=== PATIENT | female | born 1980 | race Caucasian/White ===

== ENCOUNTER 2017-09-07 20:54 | Emergency (ER) | payer OTHER ==
[2017-09-07 21:00] VITALS: BP 133/89
[2017-09-07] MEDS ORDERED: Ondansetron 4 MG/2 ML SDV IVPUSH ONE ×2 (21:13→23:23)
[2017-09-07] MEDS ORDERED: LORazepam 2 MG/ML SDV IVPUSH ONE (21:13)
[2017-09-07] MEDS: Sodium Chloride 0.9% 1,000 ML IV SCH ×2 (21:21→22:46)
--- NOTE | 2017-09-07 21:53 | EDM.PDOC ---
ED HPI GENERAL MEDICAL PROBLEM - General Chief Complaint: Neurological Problem Stated Complaint: [facility] Time Seen by Provider: 09/07/17 21:05 Source of Information: Reports: Patient History Limitations: Reports: No Limitations - History of Present Illness INITIAL COMMENTS - FREE TEXT/NARRATIVE: This is a 36-year-old female. She apparently has a history of seizures. She began about 4 months ago and was placed on Keppra which she did not tolerate and she had an MRI of her head that apparently was normal. About 2 weeks ago she had a grand mal seizure. She is going to be worked up in [place] for her seizure since they aren't certain what is causing them. Today she was at a wrestling match and she had a seizure but it was the type of seizure where she did lose consciousness completely. She did sit down and she did develop a headache and she took some Excedrin. Apparently about 15 minutes after this initial episode she had a true grand mal seizure in which she lost consciousness. An ambulance was called and she was brought here to the ER. When she arrived she was alert and oriented and did not appear to be postictal and was able to answer all questions appropriately. She still complains of a mild headache and she feels somewhat tired but she is not confused. She denies any recent illnesses no colds no cough no fever no chills no nausea no vomiting no diarrhea. The only positive event was this morning she gave some blood and then when they checked her blood sugar when she had the second seizure today it was 59 and they gave her some sugar on the way to the ER. Treatments LOSS CONTROL ENGINEER: Reports: Other (see below) Other Treatments LOSS CONTROL ENGINEER: excedrin Headache Pain Score (Numeric/FACES): 8 - Related Data Allergies Allergy/AdvReac Type Severity Reaction Status Date / Time hydromorphone HCl Allergy Itching Verified 04/21/15 10:35 [From Dilaudid] anesthesia Allergy Nausea and Uncoded 04/17/15 17:31 Vomiting Home Meds: Home Meds . [No Known Home Meds] 09/07/17 [History] Past Medical History - Past Health History Medical/Surgical History: Denies Medical/Surgical History Other HEENT History: wears glasses Other Genitourinary History: history of frequent UTIs in childhood Neurological History: Reports: Seizure Other Psychiatric History: with first son had depression 12 yrs ago - Past Surgical History Other GI Surgeries/Procedures: 05/10/15 will have inguinal hernia repair Other Female Surgeries/Procedures: ovarian cyst Social & Family History - Tobacco Use Smoking Status *Q: Former Smoker Used Tobacco, but Quit: Yes Month Tobacco Last Used: 2 months Second Hand Smoke Exposure: No - Caffeine Use Caffeine Use: Reports: Soda - Alcohol Use Days Per Week of Alcohol Use: 0 - Recreational Drug Use Recreational Drug Use: No Recreational Drug Last Use: remote history of marijuana. Denies IV drug use. ED ROS GENERAL - Review of Systems Review Of Systems: See Below Constitutional: Denies: Fever, Chills HEENT: Denies: Ear Pain, Rhinitis, Sinus Problem, Throat Pain, Throat Swelling Respiratory: Denies: Cough Cardiovascular: Denies: Chest Pain Endocrine: Reports: No Symptoms GI/Abdominal: Reports: No Symptoms : Reports: No Symptoms Musculoskeletal: Reports: No Symptoms Skin: Reports: No Symptoms Neurological: Reports: Headache, Seizure Psychiatric: Reports: No Symptoms Hematologic/Lymphatic: Reports: No Symptoms - Physical Exam Exam: See Below Exam Limited By: No Limitations General Appearance: Alert, WD/WN, No Apparent Distress Eye Exam: Bilateral Eye: Normal Inspection Ears: Normal External Exam, Normal Canal, Normal TMs Nose: Normal Inspection Throat/Mouth: Normal Inspection, Normal Lips, Normal Oropharynx, Normal Voice, No Airway Compromise Head Exam: Normocephalic Neck: Supple, Non-Tender Respiratory/Chest: No Respiratory Distress, Lungs Clear, Normal Breath Sounds Cardiovascular: Regular Rate, Rhythm, No Murmur GI/Abdominal: Soft, Non-Tender Neuro Exam (Abbreviated): Alert, Oriented, Normal Cognition, No Motor/Sensory Deficits Back Exam: Full Range of Motion Extremities: Normal Inspection, Normal Range of Motion Psychiatric: Normal Affect, Normal Mood Skin Exam: Warm, Dry Course - Vital Signs Last Recorded V/S: Last Vital Signs Temp 97.7 F 09/07/17 20:57 Pulse 83 09/07/17 20:57 Resp 18 09/07/17 20:57 BP 133/89 09/07/17 20:57 Pulse Ox 100 09/07/17 20:57 - Orders/Labs/Meds Orders: Active Orders 24 hr Category Date Time Status EKG 12 Lead [EKG Documentation Completion] [RC] ROUTINE Care 09/07/17 21:05 Active Head wo Cont [CT] Stat Exams 09/07/17 23:57 Taken Sodium Chloride 0.9% [Normal Saline] 1,000 ml Med 09/07/17 21:15 Active IV ASDIRECTED Medication Orders Sodium Chloride (Normal Saline) 1,000 mls @ 1,000 mls/hr IV ASDIRECTED ZAFAR Last Admin: 09/07/17 22:46 Dose: 1,000 mls/hr Infusion: 09/07/17 22:21 Dose: 1,000 mls/hr Admin: 09/07/17 21:21 Dose: 1,000 mls/hr Labs: Laboratory Tests 09/07/17 09/07/17 Range/Units 22:03 23:16 POC Glucose 76 86 (70-105) mg/dL Meds: Medications Generic Name Dose Route Start Last Admin Trade Name Freq PRN Reason Stop Dose Admin Sodium Chloride 1,000 mls @ 1,000 mls/hr 09/07/17 21:15 09/07/17 22:46 Normal Saline IV 1,000 mls/hr ASDIRECTED ZAFAR Administration Discontinued Medications Generic Name Dose Route Start Last Admin Trade Name Freq PRN Reason Stop Dose Admin Fentanyl 100 mcg 09/07/17 23:22 09/07/17 23:32 Sublimaze IVPUSH 09/07/17 23:23 100 mcg ONETIME ONE Administration Lorazepam 1 mg 09/07/17 21:13 09/07/17 21:25 Ativan IVPUSH 09/07/17 21:14 1 mg ONETIME ONE Administration Ondansetron HCl 4 mg 09/07/17 21:13 09/07/17 21:22 Zofran IVPUSH 09/07/17 21:14 4 mg ONETIME ONE Administration Ondansetron HCl 4 mg 09/07/17 23:23 09/07/17 23:32 Zofran IVPUSH 09/07/17 23:24 4 mg ONETIME ONE Administration - Radiology Interpretation Free Text/Narrative:: CT scan of the head was normal - Re-Assessments/Exams Free Text/Narrative Re-Assessment/Exam: 09/07/17 22:16 Patient has been doing okay but she got up to go the bathroom felt somewhat wobbly and weak. When she got up from the toilet she felt dizzy and required some nurses to help her to get back to bed. Her and check was 79 at that time. We'll provide some food for her. 09/08/17 01:32 I spoke to the patient and her regarding the CAT scan being normal. 09/08/17 01:32 Patient is able to ambulate and feels much better and she wants to go home. Departure - Departure Time of Disposition: 01:33 Disposition: Home, Self-Care 01 Condition: Fair Clinical Impression: Seizure, Hypoglycemia - Discharge Information Referrals: PCP,None [Primary Care Provider] - Forms: ED Department Discharge Additional Instructions: Sleep as much as you can tonight and tomorrow, gentle activity over the next 48 hours with no straining or stress or excitement, avoid caffeine for the next 48 hours, recheck with your family doctor and follow-up with [place] for continued workup of your seizures, return to the ER if needed - My Orders Last 24 Hours: My Active Orders 09/07/17 21:05 EKG 12 Lead [EKG Documentation Completion] [RC] ROUTINE 09/07/17 21:15 Sodium Chloride 0.9% [Normal Saline] 1,000 ml IV ASDIRECTED 09/07/17 23:57 Head wo Cont [CT] Stat - Assessment/Plan Last 24 Hours: My Active Orders 09/07/17 21:05 EKG 12 Lead [EKG Documentation Completion] [RC] ROUTINE 09/07/17 21:15 Sodium Chloride 0.9% [Normal Saline] 1,000 ml IV ASDIRECTED 09/07/17 23:57 Head wo Cont [CT] Stat
[2017-09-07] MEDS ORDERED: fentaNYL 100 MCG/2 ML SDV IVPUSH ONE (23:22)
--- NOTE | 2017-09-10 08:01 | CT ---
Head CT Technique: Multiple axial sections through the brain were obtained. Intravenous contrast was not utilized. Comparison: Prior MRI brain of 04/27/16. Findings: Ventricles along with basal cisterns and sulci over the convexities are within normal limits for the patient's age. No abnormal parenchymal densities are seen. No evidence of intracranial hemorrhage. No midline shift or mass effect is seen. Bone window settings were reviewed which show no acute calvarial abnormality. Mucosal thickening and possible air-fluid level noted within the right sphenoid sinus. Minimal mucosal thickening is noted within the anterior ethmoid sinuses. Impression: 1. Sinus findings. Uncertain if air-fluid level is due to retained secretions or pre-existing sinusitis. Please correlate with the patient's symptoms. 2. No additional abnormality is identified on noncontrast head CT exam. Diagnostic code #3
== END 2017-09-08 01:45 | disposition home or self-care (01) ==
LOC: JD.ED 20:54
DX: G40.409 Other generalized epilepsy and epileptic syndromes, not intractable, without status epilepticus (principal); E16.2 Hypoglycemia, unspecified; Z87.891 Personal history of nicotine dependence; Z88.5 Allergy status to narcotic agent; Z88.4 Allergy status to anesthetic agent
CPT/HCPCS: 70450; 82962; 93005; 96361; 96374; 96375; 96376; 99285; J2060; J2405; J3010; J7040

== ENCOUNTER 2020-12-30 03:29 | Emergency (ER) | payer MEDICAID, OTHER ==
[2020-12-30] MEDS ORDERED: Lactated Ringers 1,000 ML IV ONE (03:35)
[2020-12-30] MEDS ORDERED: Ondansetron 4 MG/2 ML SDV IVPUSH ONE (03:35)
[2020-12-30] MEDS ORDERED: Lactated Ringers 1,000 ML IV SCH (03:45)
--- NOTE | 2020-12-30 04:01 | EDM.PDOC ---
<Amaury Dillon - Last Filed: 12/30/20 04:50> ED HPI GENERAL MEDICAL PROBLEM - General Chief Complaint: Neuro Symptoms/Deficits Stated Complaint: [facility] Time Seen by Provider: 12/30/20 03:35 - History of Present Illness INITIAL COMMENTS - FREE TEXT/NARRATIVE: 40-year-old female brought in by EMS after having some apparent seizure activity. The patient is quite intoxicated and does not able or willing to provide much history at this point. According to the patient significant other the patient has seizures he is not aware of what type of work-up she has had for this. But she has the seizures that last up to a minute where she has motion in all 4 extremities. And then when seizures done she is awake none of these are associated with loss of bowel or bladder control. Tonight the patient has been drinking she has had about half a dozen mixed drinks and half a dozen shots. Usually the seizures are associated with stress. According to the significant other the seizures he is witnessed tonight lasted about 30 seconds and from the time they started the till the time EMS arrived to pick her up she has had roughly 20 of these. EMS transported her gave her 5 mg of Valium and 1 mg of Ativan. Accu-Chek was 102 I did find a note in our records that is roughly 2 years old that is the only note in our records that talk about her having a seizure disorder. It mentions that the cause of the seizures is unknown and she will go to [facility] to get this evaluated. The significant other does not not know anything about this. - Related Data Allergies Allergy/AdvReac Type Severity Reaction Status Date / Time hydromorphone HCl Allergy Itching Verified 12/30/20 03:35 [From Dilaudid] anesthesia AdvReac Nausea and Uncoded 12/30/20 04:33 Vomiting Home Meds: Home Meds . [No Known Home Meds] 09/07/17 [History] Past Medical History - Past Health History Medical/Surgical History: Denies Medical/Surgical History Other HEENT History: wears glasses Other Genitourinary History: history of frequent UTIs in childhood Neurological History: Reports: Seizure Other Psychiatric History: with first son had depression 12 yrs ago - Past Surgical History Other GI Surgeries/Procedures: 05/10/15 will have inguinal hernia repair Other Female Surgeries/Procedures: ovarian cyst Social & Family History - Tobacco Use Tobacco Use Status *Q: Unknown Ever Used Tobacco - Caffeine Use Caffeine Use: Reports: Soda - Recreational Drug Use Recreational Drug Use: No ED ROS GENERAL - Review of Systems Review Of Systems: See Below Reason Not Obtained: Patient is too sleepy or sedated to answer questions ED EXAM, GENERAL - Physical Exam Exam: See Below Exam Limited By: Intoxication (Patient is highly intoxicated and just wants to sleep.) General Appearance: No Apparent Distress Head: Atraumatic, Normocephalic Neck: Normal Inspection, Supple, Non-Tender, Full Range of Motion Respiratory/Chest: No Respiratory Distress, Lungs Clear, Normal Breath Sounds Cardiovascular: Regular Rate, Rhythm, No Edema, No Murmur GI/Abdominal: Normal Bowel Sounds, Soft, Other (No obvious tenderness but the patient is quite sedated) Course - Re-Assessments/Exams Free Text/Narrative Re-Assessment/Exam: 12/30/20 05:07 At this time patient is stable however is overly sedated either from the alcohol and/or the benzodiazepine she received in route and will not cooperate with the exam Departure - Departure Disposition: Home, Self-Care 01 Clinical Impression: Alcohol intoxication Qualifiers: Complication of substance-induced condition: uncomplicated Qualified Code(s): F10.920 - Alcohol use, unspecified with intoxication, uncomplicated Convulsion, non-epileptic Qualifiers: Convulsion type: unspecified Qualified Code(s): R56.9 - Unspecified convulsions - Discharge Information Referrals: PCP,None [Primary Care Provider] - Forms: ED Department Discharge Additional Instructions: 1. Drink plenty of fluids 2. Ibuprofen and/or acetaminophen as needed for pain 3. Follow up with the local primary care provider of your choice 4. Return to the ED as needed for severe pain, seizures, weakness, confusion, fever, or other concerning symptoms Sepsis Event Note (ED) - Evaluation Sepsis Screening Result: No Definite Risk <Vladimir Mora - Last Filed: 12/30/20 08:48> Course - Vital Signs Last Recorded V/S: Last Vital Signs Temp 36.9 C 12/30/20 03:31 Pulse 78 12/30/20 03:31 Resp 16 12/30/20 03:31 BP 98/78 12/30/20 03:31 Pulse Ox 98 12/30/20 03:31 - Orders/Labs/Meds Orders: Active Orders 24 hr Category Date Time Status Lactated Ringers [Ringers, Lactated] 1,000 ml Med 12/30/20 03:45 Active IV ASDIRECTED Medication Orders Lactated Ringer's (Ringers, Lactated) 1,000 mls @ 125 mls/hr IV ASDIRECTED ZAFAR Last Admin: 12/30/20 04:58 Dose: 125 mls/hr Documented by: OSVALDO Labs: Laboratory Tests 12/30/20 12/30/20 12/30/20 Range/Units 03:45 03:45 03:45 WBC 4.99 (3.98-10.04) K/mm3 RBC 4.11 (3.98-5.22) M/mm3 Hgb 13.4 (11.2-15.7) gm/dl Hct 40.3 (34.1-44.9) % MCV 98.1 H D (79.4-94.8) fl MCH 32.6 H (25.6-32.2) pg MCHC 33.3 (32.2-35.5) g/dl RDW Std Deviation 48.6 H (36.4-46.3) fL Plt Count 187 (182-369) K/mm3 MPV 10.1 (9.4-12.3) fl Neut % (Auto) 45.3 (34.0-71.1) % Lymph % (Auto) 42.5 (19.3-51.7) % [place] % (Auto) 9.8 (4.7-12.5) % Eos % (Auto) 2.2 (0.7-5.8) Baso % (Auto) 0.2 (0.1-1.2) % Neut # (Auto) 2.26 (1.56-6.13) K/mm3 Lymph # (Auto) 2.12 (1.18-3.74) K/mm3 [place] # (Auto) 0.49 H (0.24-0.36) K/mm3 Eos # (Auto) 0.11 (0.04-0.36) K/mm3 Baso # (Auto) 0.01 (0.01-0.08) K/mm3 PT 10.5 (9.7-12.0) SECONDS INR 0.98 Sodium 148 H (136-145) mEq/L Potassium 3.4 L (3.5-5.1) mEq/L Chloride 111 H (98-107) mEq/L Carbon Dioxide 25 (21-32) mEq/L Anion Gap 15.4 H (5-15) BUN 10 (7-18) mg/dL Creatinine 0.8 (0.55-1.02) mg/dL Est Cr Clr Drug Dosing 80.72 mL/min Estimated GFR (MDRD) > 60 (>60) mL/min BUN/Creatinine Ratio 12.5 L (14-18) Glucose 106 H (70-99) mg/dL Calcium 8.3 L (8.5-10.1) mg/dL Total Bilirubin 0.3 (0.2-1.0) mg/dL AST 18 (15-37) U/L ALT 20 (14-59) U/L Alkaline Phosphatase 48 (46-116) U/L Total Protein 6.9 (6.4-8.2) g/dl Albumin 3.5 (3.4-5.0) g/dl Globulin 3.4 gm/dL Albumin/Globulin Ratio 1.0 (1-2) HCG, Qual (NEGATIVE) Urine Color (Yellow) Urine Appearance (Clear) Urine pH (5.0-8.0) Ur Specific [place] (1.005-1.030) Urine Protein (Negative) Urine Glucose (UA) (Negative) Urine Ketones (Negative) Urine Occult Blood (Negative) Urine Nitrite (Negative) Urine Bilirubin (Negative) Urine Urobilinogen (0.2-1.0) Ur Leukocyte Esterase (Negative) Urine RBC (0-5) /hpf Urine WBC (0-5) /hpf Ur Epithelial Cells (0-5) /hpf Urine Bacteria (FEW) /hpf Urine Mucus (FEW) /hpf Urine Opiates Screen (ELOKPN=845) Ur Buprenorphine Scrn (CUTOFF=10) Ur Oxycodone Screen (IFL0TX=104) Urine Methadone Screen (GQLARM=736) Ur Propoxyphene Screen (PHBDSB=576) Ur Barbiturates Screen (SHFBJL=362) Ur Tricyclics Screen (HOPXSA=588) Ur Phencyclidine Scrn (CUTOFF=25) Ur Amphetamine Screen (WUMOOF=175) U Methamphetamines Scrn (KHDPQF=734) U Benzodiazepines Scrn (FDLYGD=004) U Cocaine Metab Screen (YQUEPL=744) U Marijuana (THC) Screen (CUTOFF=50) Ethyl Alcohol 0.23 (0.00) gm% 12/30/20 12/30/20 12/30/20 Range/Units 03:45 07:46 07:46 WBC (3.98-10.04) K/mm3 RBC (3.98-5.22) M/mm3 Hgb (11.2-15.7) gm/dl Hct (34.1-44.9) % MCV (79.4-94.8) fl MCH (25.6-32.2) pg MCHC (32.2-35.5) g/dl RDW Std Deviation (36.4-46.3) fL Plt Count (182-369) K/mm3 MPV (9.4-12.3) fl Neut % (Auto) (34.0-71.1) % Lymph % (Auto) (19.3-51.7) % [place] % (Auto) (4.7-12.5) % Eos % (Auto) (0.7-5.8) Baso % (Auto) (0.1-1.2) % Neut # (Auto) (1.56-6.13) K/mm3 Lymph # (Auto) (1.18-3.74) K/mm3 [place] # (Auto) (0.24-0.36) K/mm3 Eos # (Auto) (0.04-0.36) K/mm3 Baso # (Auto) (0.01-0.08) K/mm3 PT (9.7-12.0) SECONDS INR Sodium (136-145) mEq/L Potassium (3.5-5.1) mEq/L Chloride (98-107) mEq/L Carbon Dioxide (21-32) mEq/L Anion Gap (5-15) BUN (7-18) mg/dL Creatinine (0.55-1.02) mg/dL Est Cr Clr Drug Dosing mL/min Estimated GFR (MDRD) (>60) mL/min BUN/Creatinine Ratio (14-18) Glucose (70-99) mg/dL Calcium (8.5-10.1) mg/dL Total Bilirubin (0.2-1.0) mg/dL AST (15-37) U/L ALT (14-59) U/L Alkaline Phosphatase (46-116) U/L Total Protein (6.4-8.2) g/dl Albumin (3.4-5.0) g/dl Globulin gm/dL Albumin/Globulin Ratio (1-2) HCG, Qual Negative (NEGATIVE) Urine Color Light yellow (Yellow) Urine Appearance Clear (Clear) Urine pH 7.0 (5.0-8.0) Ur Specific [place] 1.020 (1.005-1.030) Urine Protein Negative (Negative) Urine Glucose (UA) Negative (Negative) Urine Ketones Negative (Negative) Urine Occult Blood Trace-lysed H (Negative) Urine Nitrite Negative (Negative) Urine Bilirubin Negative (Negative) Urine Urobilinogen 0.2 (0.2-1.0) Ur Leukocyte Esterase Negative (Negative) Urine RBC Not seen (0-5) /hpf Urine WBC 0-5 (0-5) /hpf Ur Epithelial Cells 0-5 (0-5) /hpf Urine Bacteria Moderate H (FEW) /hpf Urine Mucus Few (FEW) /hpf Urine Opiates Screen Negative (HVCGAY=010) Ur Buprenorphine Scrn Negative (CUTOFF=10) Ur Oxycodone Screen Negative (YSX3IR=042) Urine Methadone Screen Negative (NTRCWD=160) Ur Propoxyphene Screen Negative (KEVKTC=586) Ur Barbiturates Screen Negative (HGTGPO=149) Ur Tricyclics Screen Negative (PWGALL=603) Ur Phencyclidine Scrn Negative (CUTOFF=25) Ur Amphetamine Screen Negative (ICTUZS=420) U Methamphetamines Scrn Negative (ILNHYY=461) U Benzodiazepines Scrn Negative (DZZIWA=050) U Cocaine Metab Screen Negative (FUJCQM=300) U Marijuana (THC) Screen Negative (CUTOFF=50) Ethyl Alcohol (0.00) gm% Meds: Medications Generic Name Dose Route Start Last Admin Trade Name Freq PRN Reason Stop Dose Admin Lactated Ringer's 1,000 mls @ 125 mls/hr 12/30/20 03:45 12/30/20 04:58 Ringers, Lactated IV 125 mls/hr ASDIRECTED ZAFAR Administration Discontinued Medications Generic Name Dose Route Start Last Admin Trade Name Freq PRN Reason Stop Dose Admin Lactated Ringer's 1,000 mls @ 999 mls/hr 12/30/20 03:35 12/30/20 03:58 Ringers, Lactated IV 12/30/20 04:35 999 mls/hr .BOLUS ONE Administration Ondansetron HCl 4 mg 12/30/20 03:35 12/30/20 03:58 Ondansetron 4 Mg/2 Ml Sdv IVPUSH 12/30/20 03:36 4 mg ONETIME ONE Administration - Re-Assessments/Exams Free Text/Narrative Re-Assessment/Exam: 12/30/20 08:45 Patient signed out to me this morning. She is now awake, alert, doesn't recall much of the details of the late night when she was brought here. 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 She states she does have a history of this. Labs unremarkable except for ETOH intoxication. She is now clinically sober and has been up to the bathroom. Denies any specific pain/injury. Alert and oriented x 3, no focal neurological deficits, no sign of injury, will dc home. Advised her to f/u with local PCP. Departure - Departure Time of Disposition: 08:47 Sepsis Event Note (ED) - Focused Exam Vital Signs: Vital Signs Temp Pulse Resp BP Pulse Ox 12/30/20 03:31 36.9 C 78 16 98/78 98
--- NOTE | 2020-12-30 08:13 | CT ---
Head CT Technique: Multiple axial sections through the brain were obtained. Intravenous contrast was not utilized. Reconstructed coronal and sagittal images were obtained. Comparison: Prior head CT study of 09/08/17. Findings: Ventricles along with basal cisterns and sulci over the convexities are within normal limits for the patient's age. No abnormal parenchymal densities are seen. No evidence of intracranial hemorrhage is seen. No midline shift or mass-effect is seen. Bone window settings were reviewed which show no acute calvarial abnormality. Visualized mastoid sinuses and paranasal sinuses show nothing acute. Impression: 1. Nothing acute is appreciated on noncontrast head CT study. Diagnostic code #1 I agree with preliminary report from [facility], finalized on 12/30/20, 6:15 AM CDT, code 1
[2020-12-30 09:14] VITALS: BP 130/70; PULSE 70
== END 2020-12-30 09:15 | disposition home or self-care (01) ==
LOC: JD.ED 03:29
DX: R56.9 Unspecified convulsions (principal); F10.129 Alcohol abuse with intoxication, unspecified; Z88.4 Allergy status to anesthetic agent; Z88.6 Allergy status to analgesic agent
CPT/HCPCS: 36415; 70450; 80053; 80306; 80307; 81001; 84703; 85025; 85610; 96374; 99285; J2405; J7120

== ENCOUNTER 2023-04-23 11:31 | Emergency (ER) | payer MEDICAID, OTHER ==
[2023-04-23] MEDS ORDERED: Metoclopramide 10 MG/2 ML SDV IVPUSH ONE (12:13)
[2023-04-23] MEDS ORDERED: HYDROmorphone 0.5 MG/0.5 ML Syringe IVPUSH ONE (12:13)
[2023-04-23] MEDS ORDERED: diphenhydrAMINE 50 MG/ML SDV IVPUSH ONE (12:13)
[2023-04-23] MEDS ORDERED: Sodium Chloride 0.9% 1,000 ML IV SCH (12:15)
[2023-04-23 12:42] LABS: BASOPHILS PERCENT AUTO 0.1 % (0.0-1.0); EOSINOPHILS PERCENT AUTO 0.3 % (0.0-6.0); HEMATOCRIT 43.5 % (37.0-47.0); HEMOGLOBIN 15.1 gm/dl (12.0-16.0); IMMATURE GRAN ABSOLUTE AUTO 0.02 K/mm3 (0.00-0.05); IMMATURE GRAN PERCENT AUTO 0.3 % (0.0-0.4); LYMPHOCYTES ABSOLUTE AUTO 1.2 K/mm3 (1.0-4.8); LYMPHOCYTES PERCENT AUTO 15.5 % (24.0-44.0); MEAN CORPUSCULAR HEMOGLOBIN 31.8 pg (28.0-32.0); MEAN CORPUSCULAR HGB CONC 34.7 g/dl (32.0-36.0); MEAN CORPUSCULAR VOLUME 91.6 fl (83.0-99.0); MEAN PLATELET VOLUME 9.8 fl (9.4-12.3); MONOCYTES ABSOLUTE AUTO 0.6 K/mm3 (0.0-0.8); MONOCYTES PERCENT AUTO 7.5 % (0.0-8.0); NEUTROPHILS ABSOLUTE AUTO 6.1 K/mm3 (1.8-7.7); NEUTROPHILS PERCENT AUTO 76.3 % (41.0-71.0); PLATELET COUNT,PLT 179 K/mm3 (150-400); RED BLOOD CELL COUNT 4.75 M/mm3 (4.10-5.30)
[2023-04-23 13:14] LABS: ALANINE AMINOTRANSFERASE,ALT 21 U/L (14-59); ALBUMIN 4.1 g/dl (3.4-5.0); ALKALINE PHOSPHATASE 54 U/L (46-116); ANION GAP 16.9 (5-15); ASPARTATE AMNIOTRANSFERASE,AST 18 U/L (15-37); BILIRUBIN TOTAL 0.6 mg/dL (0.2-1.0); BLOOD UREA NITROGEN,BUN 18 mg/dL (7-18); BUN/CREATININE RATIO 25.7 (14-18); C-REACTIVE PROTEIN <0.2 mg/dL (<1.0); CALCIUM 9.3 mg/dL (8.5-10.1); CARBON DIOXIDE,CO2 21 mEq/L (21-32); CHLORIDE,CL 100 mEq/L (98-107); CREATININE 0.7 mg/dL (0.55-1.02); EST CRCL DRUG DOSING (CG) 101.81 mL/min; ESTIMATED GFR 111 mL/min (>60); GLUCOSE RANDOM 83 mg/dL (70-99); POTASSIUM,K 3.9 mEq/L (3.5-5.1); PROTEIN TOTAL,TP 8.3 g/dl (6.4-8.2); SODIUM,NA 134 mEq/L (136-145)
[2023-04-23] MEDS ORDERED: Iopamidol 612 MG/ML 100 ML Bottle IVPUSH ONE (13:20)
[2023-04-23] MEDS ORDERED: Sodium Chloride 0.9% 10 ML Syringe FLUSH PRN (13:20)
[2023-04-23] MEDS ORDERED: Sodium Chloride 0.9% 100 ML IV SCH (13:30)
[2023-04-23] MEDS ORDERED: Dicyclomine 20 MG/2 ML SDV IM ONE (14:15)
[2023-04-23 14:23] LABS: APPEARANCE,URINE CLEAR (Clear); BILIRUBIN,URINE NEGATIVE (Negative); COLOR,URINE YELLOW (Yellow); GLUCOSE,URINE NEGATIVE (Negative); KETONES,URINE NEGATIVE (Negative); LEUKOCYTE ESTERASE,URINE NEGATIVE (Negative); NITRITE,URINE NEGATIVE (Negative); OCCULT BLOOD,URINE NEGATIVE (Negative); PH,URINE 5.5 (5.0-8.0); PROTEIN,URINE NEGATIVE (Negative); UROBILINOGEN,URINE 0.2 (0.2-1.0)
[2023-04-23 14:29] LABS: BACTERIA,URINE FEW /hpf (FEW); EPITHELIAL CELLS,URINE 0-5 /hpf (0-5); MUCUS,URINE FEW /hpf (FEW); RBC,URINE 0-5 /hpf (0-5); WBC,URINE 0-5 /hpf (0-5)
[2023-04-23 15:25] VITALS: BP 118/80; PULSE 73
== END 2023-04-23 15:23 | disposition home or self-care (01) ==
LOC: JD.ED 11:31
DX: K52.9 Noninfective gastroenteritis and colitis, unspecified (principal); Z88.5 Allergy status to narcotic agent; Z88.8 Allergy status to other drugs, medicaments and biological substances
CPT/HCPCS: 36415; 74177; 80053; 81001; 84703; 85025; 86140; 96361; 96372; 96374; 96375; 99284; J0500; J1170; J1200; J2765; J3490; J7030; Q9967

== ENCOUNTER 2023-06-05 09:52 | Emergency (ER) | payer OTHER ==
[2023-06-05] MEDS ORDERED: Diclofenac Sodium 1% Gel 100 GM Tube TOP ONE (10:14)
[2023-06-05 10:53] LABS: APPEARANCE,URINE CLEAR (Clear); BILIRUBIN,URINE NEGATIVE (Negative); COLOR,URINE YELLOW (Yellow); GLUCOSE,URINE NEGATIVE (Negative); KETONES,URINE NEGATIVE (Negative); LEUKOCYTE ESTERASE,URINE NEGATIVE (Negative); NITRITE,URINE POSITIVE (Negative); OCCULT BLOOD,URINE NEGATIVE (Negative); PH,URINE 7.5 (5.0-8.0); PROTEIN,URINE NEGATIVE (Negative); UROBILINOGEN,URINE 0.2 (0.2-1.0)
[2023-06-05 10:55] LABS: BASOPHILS PERCENT AUTO 0.6 % (0.0-1.0); EOSINOPHILS ABSOLUTE AUTO 0.1 K/mm3 (0.0-0.4); EOSINOPHILS PERCENT AUTO 1.1 % (0.0-6.0); HEMATOCRIT 39.6 % (37.0-47.0); IMMATURE GRAN ABSOLUTE AUTO 0.01 K/mm3 (0.00-0.05); IMMATURE GRAN PERCENT AUTO 0.2 % (0.0-0.4); LYMPHOCYTES ABSOLUTE AUTO 1.3 K/mm3 (1.0-4.8); LYMPHOCYTES PERCENT AUTO 21.6 % (24.0-44.0); MEAN CORPUSCULAR HEMOGLOBIN 30.7 pg (28.0-32.0); MEAN CORPUSCULAR HGB CONC 33.1 g/dl (32.0-36.0); MEAN CORPUSCULAR VOLUME 92.7 fl (83.0-99.0); MEAN PLATELET VOLUME 9.7 fl (9.4-12.3); MONOCYTES ABSOLUTE AUTO 0.5 K/mm3 (0.0-0.8); MONOCYTES PERCENT AUTO 8.4 % (0.0-8.0); NEUTROPHILS ABSOLUTE AUTO 4.2 K/mm3 (1.8-7.7); NEUTROPHILS PERCENT AUTO 68.1 % (41.0-71.0); PLATELET COUNT,PLT 186 K/mm3 (150-400); RED BLOOD CELL COUNT 4.27 M/mm3 (4.10-5.30); WHITE BLOOD CELL COUNT,WBC 6.21 K/mm3 (3.9-11.3)
[2023-06-05 10:56] LABS: HEMOGLOBIN 13.1 gm/dl (12.0-16.0)
[2023-06-05 11:00] LABS: BACTERIA,URINE MANY /hpf (FEW); EPITHELIAL CELLS,URINE 0-5 /hpf (0-5); MUCUS,URINE FEW /hpf (FEW); RBC,URINE 0-5 /hpf (0-5); WBC,URINE 0-5 /hpf (0-5)
[2023-06-05 11:32] LABS: A/G RATIO 0.9 (1-2); ALBUMIN 3.6 g/dl (3.4-5.0); ANION GAP 12.7 (5-15); BILIRUBIN TOTAL 0.5 mg/dL (0.2-1.0); BUN/CREATININE RATIO 15.6 (14-18); CALCIUM 8.7 mg/dL (8.5-10.1); CREATININE 0.9 mg/dL (0.55-1.02); EST CRCL DRUG DOSING (CG) 79.19 mL/min; POTASSIUM,K 3.7 mEq/L (3.5-5.1); PROTEIN TOTAL,TP 7.7 g/dl (6.4-8.2)
[2023-06-05 12:59] VITALS: BP 128/87; PULSE 57
== END 2023-06-05 12:55 | disposition home or self-care (01) ==
LOC: JD.ED 09:52
DX: R07.89 Other chest pain (principal); M94.0 Chondrocostal junction syndrome [Tietze]; F17.210 Nicotine dependence, cigarettes, uncomplicated; Z88.8 Allergy status to other drugs, medicaments and biological substances
CPT/HCPCS: 36415; 80053; 81001; 84484; 85025; 93005; 99285; A9270; 93010; 99283